=== PATIENT | male | born 1965 | race Caucasian/White ===

== ENCOUNTER 2024-07-27 13:39 | Emergency (ER) | payer OTHER ==
[~2024-07-27] VITALS: Ht 172.7 cm; Wt 119.0 kg
[2024-07-27] MEDS ORDERED: AMOXICILLIN500 MG PO (14:45)
[2024-07-27 15:03] VITALS: BP 148/93
== END 2024-07-27 15:01 | disposition home or self-care (01) ==
LOC: ED 13:39
DX: K02.9 Dental caries, unspecified (principal); J06.9 Acute upper respiratory infection, unspecified
CPT/HCPCS: 99283

== ENCOUNTER 2024-08-18 13:55 | Emergency (ER) | payer OTHER ==
[~2024-08-18] VITALS: Ht 172.7 cm; Wt 116.2 kg
[~2024-08-18 13:55] MED LIST: AMOXICILLIN500 MG PO
--- OUTSIDE RECORDS SUMMARY | 2024-08-18 14:02 | XMS ---
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 - 2 Visits in 30 Days CARE PROVIDERS -, [facility]ist: Guest Service Aide Current [place] PHONE: [phone] Sree has no Care Guidelines for this patient. Mk VISIT COUNT (12 MO.) 2 [facility] TOTAL 2 NOTE: Visits indicate total known visits. ED/UCC VISIT TRACKING (12 MO.) 08/18/2024 13:[address] [facility] [place] TYPE: Emergency COMPLAINT: - FATIGUE 07/27/2024 13:40 [facility] [place] TYPE: Emergency COMPLAINT: - COLD SYMPTOMS DIAGNOSES: - Acute upper respiratory infection, unspecified - Dental caries, unspecified - Other specified disorders of teeth and supporting structures INPATIENT VISIT TRACKING (12 MO.) No inpatient visits to display in this time frame [email or web address]
[2024-08-18] MEDS ORDERED: BUPRENORPHINE HC8 MG SL (14:10)
[2024-08-18] MEDS ORDERED: FENOFIBRATE67 MG PO ×2 (14:11→14:45)
[2024-08-18] MEDS ORDERED: ALLOPURINOL300 MG PO ×2 (14:12→14:45)
[2024-08-18] MEDS ORDERED: MELOXICAM15 MG PO (14:12)
[2024-08-18] MEDS ORDERED: COZAAR100 MG PO ×2 (14:12→14:45)
[2024-08-18] MEDS ORDERED: METFORMIN HCL1000 M1 PO (14:45)
[2024-08-18] MEDS ORDERED: SUBOXONE 8 MG-1 EAC1 SL (14:45)
[2024-08-18 14:53] VITALS: BP 149/100
== END 2024-08-18 14:53 | disposition home or self-care (01) ==
LOC: ED 13:55
DX: F11.23 Opioid dependence with withdrawal (principal); R53.83 Other fatigue; R06.02 Shortness of breath; R05.9 Cough, unspecified; T40.2X5A Adverse effect of other opioids, initial encounter; I10 Essential (primary) hypertension; Z76.0 Encounter for issue of repeat prescription
CPT/HCPCS: 99281

== ENCOUNTER 2024-12-01 13:02 | Emergency (ER) | payer OTHER ==
[~2024-12-01] VITALS: Ht 172.7 cm; Wt 119.0 kg
[~2024-12-01 13:02] MED LIST changes: +ALLOPURINOL300 MG PO; +BUPRENORPHIN-N1 EACH SL; +BUPRENORPHINE HC8 MG SL; +BUPRENORPHINE-1 EACH SL; +COZAAR100 MG PO; +FENOFIBRATE67 MG PO; +MELOXICAM10 MG PO; +MELOXICAM15 MG PO; +METFORMIN HCL1000 M1 PO; +OMEPRAZOLE20 MG PO; +PAROXETINE HCL40 MG PO; +SUBOXONE 8 MG-1 EAC1 SL; +VENTOLIN HFA18 GM
--- OUTSIDE RECORDS SUMMARY | 2024-12-01 13:12 | XMS ---
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 Mk VISIT COUNT (12 MO.) [address] [place] [address] TOTAL 5 NOTE: Visits indicate total known visits. ED/UCC VISIT TRACKING (12 MO.) 12/01/2024 13:03 [facility] [place] TYPE: Emergency COMPLAINT: - MEDICATION REFILL 11/28/2024 12:48 [facility] [place] TYPE: Emergency COMPLAINT: - MEDICATION REFILL 11/21/2024 12:43 [facility] [place] TYPE: Emergency COMPLAINT: - MEDICATION REFILL DIAGNOSES: - Encounter for issue of repeat prescription - Essential (primary) hypertension - manager terminal (current) use of non-steroidal anti-inflammatories (NSAID) - manager terminal (current) use of oral hypoglycemic drugs - Other snf (current) drug therapy - Periapical abscess without sinus - Presence of right artificial hip joint - Pure hypercholesterolemia, unspecified - Type 2 diabetes mellitus without complications 08/18/2024 13:55 [facility] [place] TYPE: Emergency COMPLAINT: - FATIGUE DIAGNOSES: - Adverse effect of other opioids, initial encounter - Cough, unspecified - Encounter for issue of repeat prescription - Essential (primary) hypertension - Opioid dependence with withdrawal - Other fatigue - Shortness of breath 07/27/2024 13:40 [facility] [place] TYPE: Emergency COMPLAINT: - COLD SYMPTOMS DIAGNOSES: - Acute upper respiratory infection, unspecified - Dental caries, unspecified - Other specified disorders of teeth and supporting structures INPATIENT VISIT TRACKING (12 MO.) No inpatient visits to display in this time frame [email or web address]
[2024-12-01] MEDS ORDERED: GLYCERIN 2 GM SUPP PR ONE (13:30)
[2024-12-01] MEDS ORDERED: BUPRENORPHIN-N1 EACH SL (13:31)
[2024-12-01] MEDS ORDERED: PAROXETINE HCL40 MG PO (13:31)
[2024-12-01] MEDS ORDERED: LOSARTAN POTAS100 MG PO (13:31)
[2024-12-01 13:42] VITALS: BP 169/100
== END 2024-12-01 13:46 | disposition home or self-care (01) ==
LOC: ED 13:02
DX: I10 Essential (primary) hypertension (principal); E11.9 Type 2 diabetes mellitus without complications; Z76.0 Encounter for issue of repeat prescription; Z79.84 Long term (current) use of oral hypoglycemic drugs; Z79.899 Other long term (current) drug therapy
CPT/HCPCS: 99281